=== PATIENT | male | born 2000 | race Two or more races ===

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

== ENCOUNTER 2021-01-05 16:29 | Emergency (ER) | payer OTHER ==
[~2021-01-05] VITALS: Ht 170.2 cm; Wt 59.0 kg
[2021-01-05 16:29] VITALS: BP 108/63
== END 2021-01-05 18:27 | disposition left against medical advice (07) ==
LOC: ER 16:29
DX: R06.02 Shortness of breath (principal); F41.9 Anxiety disorder, unspecified; Z53.21 Procedure and treatment not carried out due to patient leaving prior to being seen by health care provider

== ENCOUNTER 2022-07-07 13:48 | Emergency (ER) | payer OTHER ==
[~2022-07-07] VITALS: Ht 167.6 cm; Wt 61.3 kg
[2022-07-07 15:44] VITALS: BP 125/79
[2022-07-07] MEDS ORDERED: HYDROcodone-ACET 5/325MG TAB PO ONE (15:45)
[2022-07-07] MEDS ORDERED: KETOROLAC TROMETH 60MG/2ML VIAL IM ONE (15:45)
[2022-07-07] MEDS ORDERED: HYDR-4902 PO (15:57)
[2022-07-07] MEDS ORDERED: IBUP800T26 PO (15:57)
== END 2022-07-07 16:17 | disposition home or self-care (01) ==
LOC: ER 13:48
DX: S63.501A Unspecified sprain of right wrist, initial encounter (principal); W10.9XXA Fall (on) (from) unspecified stairs and steps, initial encounter; Y93.89 Activity, other specified; Y92.89 Other specified places as the place of occurrence of the external cause; Y99.8 Other external cause status
CPT/HCPCS: 29125; 73090; 73110; 96372; 99284; J1885